=== PATIENT | female | born 1990 | race Hispanic/Latino ===

== ENCOUNTER 2017-11-18 13:17 | Emergency (ER) | payer BC, OTHER ==
[2017-11-18] MEDS ORDERED: SODIUM CHLORIDE 0.9% 1000ML 1,000 ML IV ONE (14:52)
[2017-11-18] MEDS ORDERED: ONDANSETRON HCL MDV 20ML 2 MG/ML VIAL ONE (14:52)
[2017-11-18 14:59] LABS: BASOPHILS % (AUTO) 0.7 % (0.0-5.0); EOSINOPHILS % (AUTO) 0.2 % (0.0-8.0); LYMPHOCYTES % (AUTO) 18.1 % (21.0-51.0); MEAN CORPUSCULAR HEMOGLOBIN 20.9 pg (27.0-33.0); MEAN CORPUSCULAR VOLUME 67.4 fL (79-99); MONOCYTES % (AUTO) 5.2 % (3.0-13.0); NEUTROPHILS % (AUTO) 75.8 % (40.0-77.0); PLATELET COUNT (AUTO) 347 K/uL (130-400); RED BLOOD CELL COUNT(AUTO) 4.15 MIL/uL (4.00-5.50); RED CELL DISTRIBUTION WIDTH 16.7 % (11.0-15.5); WHITE BLOOD COUNT (AUTO) 6.4 K/uL (4.8-10.8)
[2017-11-18 15:16] LABS: CREATININE 0.6 mg/dL (0.5-1.5); POTASSIUM 3.2 mmol/L (3.5-5.1)
[2017-11-18 15:20] LABS: ALBUMIN 3.9 g/dL (3.5-5.0); BILIRUBIN,DIRECT 0.1 mg/dL (0.0-0.3); BILIRUBIN,TOTAL 0.3 mg/dL (0.2-1.0); TOTAL PROTEIN, SERUM 8.1 g/dL (6.0-8.3)
[2017-11-18 15:43] LABS: HCG,QUAL RESULT NEGATIVE (NEGATIVE)
[2017-11-18 16:06] LABS: APPEARANCE,URINE HAZY (CLEAR); BILIRUBIN,URINE NEGATIVE (NEGATIVE); COLOR,URINE YELLOW (YELLOW); GLUCOSE, URINE (UA) NEGATIVE (NEGATIVE); KETONES,URINE NEGATIVE (NEGATIVE); LEUKOCYTE ESTERASE ,URINE SMALL (NEGATIVE); NITRATE,URINE NEGATIVE (NEGATIVE); OCCULT BLOOD,URINE NEGATIVE (NEGATIVE); PH,URINE 5.5 (5.0-8.0); PROTEIN,URINE NEGATIVE (NEGATIVE)
[2017-11-18] MEDS ORDERED: POTASSIUM BICARB/CIT AC 25 MEQ TABLET.EFF ONE (16:11)
[2017-11-18 16:27] LABS: BACTERIA,URINE Few /HPF (None Seen); MUCUS,URINE Few LPF (None Seen); RBC,URINE None Seen /HPF (0-1); SQUAMOUS EPITHELIAL CELL,UR 0-2 /HPF (0-2)
== END 2017-11-18 17:15 | disposition home or self-care (01) ==
LOC: EDH 13:17
DX: K52.9 Noninfective gastroenteritis and colitis, unspecified (principal); D50.9 Iron deficiency anemia, unspecified
CPT/HCPCS: 36415; 80048; 80076; 81001; 81025; 85025; 96361; 96374; 99285; J7030

== ENCOUNTER 2018-01-20 15:50 | Emergency (ER) | payer SELFPAY ==
[2018-01-20 16:10] LABS: APPEARANCE,URINE Cloudy (CLEAR); BILIRUBIN,URINE Negative (NEGATIVE); COLOR,URINE Yellow (YELLOW); GLUCOSE, URINE (UA) Negative (NEGATIVE); KETONES,URINE Negative (NEGATIVE); LEUKOCYTE ESTERASE ,URINE Large (NEGATIVE); NITRATE,URINE Negative (NEGATIVE); OCCULT BLOOD,URINE Trace (NEGATIVE); PROTEIN,URINE Trace (NEGATIVE); UROBILINOGEN,URINE 0.2 mg/dL (0.2-1.0)
[2018-01-20 16:14] LABS: HCG,QUAL RESULT NEGATIVE (NEGATIVE)
[2018-01-20 16:19] LABS: RBC,URINE None Seen /HPF (0-1)
[2018-01-20 16:20] LABS: BACTERIA,URINE Few /HPF (None Seen); SQUAMOUS EPITHELIAL CELL,UR 50-100 /HPF (0-2); TRICHOMONAS,URINE Many /LPF (None Seen); WBC,URINE >100 /HPF (0-1)
[2018-01-20] MEDS ORDERED: ONDANSETRON ODT 4 MG TAB ONE (16:21)
[2018-01-20] MEDS ORDERED: METRONIDAZOLE 500 MG TABLET ONE (16:32)
[2018-01-20] MEDS ORDERED: CEFTRIAXONE SODIUM 500 MG VIAL ONE (16:32)
[2018-01-20] MEDS ORDERED: LIDOCAINE HCL-MPF 1% 2ML VIAL ONE (16:33)
[2018-01-20] MEDS ORDERED: AZITHROMYCIN 250 MG TABLET PO ONE (16:33)
== END 2018-01-20 16:57 | disposition home or self-care (01) ==
LOC: EDH 15:50
DX: A59.03 Trichomonal cystitis and urethritis (principal); A64 Unspecified sexually transmitted disease; N39.0 Urinary tract infection, site not specified
CPT/HCPCS: 81001; 81025; 87486; 87797; 96372; 99284; J0696; J3490